=== PATIENT | female | born 2000 | race Caucasian/White ===

== ENCOUNTER 2023-11-21 19:38 | Emergency (ER) | payer OTHER, SELFPAY ==
[2023-11-21 19:40] VITALS: BP 112/74
[2023-11-21 19:59] LABS: % Basophils 0.7 % (0-2); % Eosinophils 2.1 % (0-6); % Immature Granulocytes 0.3 % (0-0.5); % Lymphocytes 45.5 % (20.5-51.1); % Monocytes 5.8 % (1.7-9.3); % Neutrophils 45.6 % (42.2-75.2); Absolute Basophils 0.1 10^3/uL (0-0.2); Absolute Eosinophils 0.2 10^3/uL (0-0.7); Absolute Lymphocytes 3.5 10^3/uL (1.2-3.4); Absolute Monocytes 0.4 10^3/uL (0.1-0.6); Absolute Neutrophils 3.5 10^3/uL (1.4-6.5); Hematocrit 40.6 % (37.0-47.0); Hemoglobin 14.5 g/dL (12.0-16.0); Mean Corp Hgb Conc. 35.7 g/dL (33.0-37.0); Mean Corpuscular Hgb 31.5 pg (27.0-31.0); Mean Corpuscular Volume 88.3 fL (81.0-99.0); Mean Platelet Volume 10.3 fL (7.4-10.4); Nucleated Red Blood Cells % 0 %; Platelet Count 220 10^3/uL (130-400); Red Cell Dist. Width 12.1 % (11.5-14.5); White Blood Cell Count 7.6 10^3/uL (4.8-10.8)
[2023-11-21 20:21] LABS: ALT (SGPT) 33 U/L (0-35); AST (SGOT) 32 U/L (14-36); Albumin 4.6 g/dl (3.5-5.0); Alkaline Phosphatase 47 U/L (38-126); Blood Urea Nitrogen 13 mg/dl (7-17); Calcium 9.8 mg/dl (8.4-10.2); Carbon Dioxide 26 mmol/L (22-30); Chloride 102 mmol/L (98-107); Glucose 85 mg/dl (70-99); Potassium 3.2 mmol/L (3.5-5.1); Sodium 142 mmol/L (135-145); Total Bilirubin 0.5 mg/dl (0.2-1.3); Total Protein 7.3 g/dl (6.3-8.2); eGFR > 60.00
[2023-11-21 20:22] LABS: Troponin I 0.023 ng/ml
[2023-11-21 20:23] LABS: HCG, Serum Qualitative Screen Negative
[2023-11-21 23:13] VITALS: BP 129/80
[2023-11-21 23:15] VITALS: BMI 31.6
[2023-11-22] VITALS: BP 108/62
--- NOTE | 2023-11-22 00:21 | ED.GENMED ---
History of Present Illness
General
Chief Complaint: Fainting/Passed Out
Source: patient and family
Exam Limitations: none
Time Seen by Provider: 11/21/23 23:20
History of Present Illness
History of Present Illness:
22-year-old female who presents after she had a syncopal episode. Patient states she was having dinner with her friend at a restaurant and had 1 benji. She then got up and felt dizzy and lightheaded like she was going to pass out. She states
she has passed out a few times in the past which attributed to a vasovagal event. The patient states that she did feel similar. She denies any associated abdominal pain. She did feel like her heart was pounding but is unsure if it really felt
fast. She had no chest pain. No shortness of breath. No recent travel. No leg swelling or leg cramping. Patient does state that she felt a little like she was going pass out again once medics got there. The patient states she did not really
want to come because now she feels totally normal. She states she is sort of embarrassed.
Past History
Past History
ED Past Medical History: None
Phy Exam
Physical Exam
Physical Exam:
CONSTITUTIONAL Patient alert and oriented to person, place and time. Well-appearing. Vital signs reviewed.
HEAD atraumatic, normocephalic.
EYES eyelids normal to inspection, Pupils equally round and reactive to light, Extraocular muscles intact, Conjunctiva normal, Sclera normal.
NECK normal range of motion, Trachea midline, no jugular venous distention.
RESPIRATORY CHEST No respiratory distress noted, Chest expansion equal, Bilateral breath sounds clear.
CARDIOVASCULAR regular rate and rhythm, Heart sounds normal.
ABDOMEN abdomen nontender, Bowel sounds normal. No distention.
BACK normal inspection, no obvious deformities
UPPER EXTREMITY range of motion normal, Motor strength normal, no cyanosis, no edema.
LOWER EXTREMITY range of motion normal, Motor strength normal, no cyanosis, no edema. Negative Homans. No swelling no palpable cords
NEURO Speech normal, No focal motor deficits, Laurie coma scale 15, Memory normal, Cranial Nerves intact to screening exam.
SKIN skin warm, dry, and normal in color.
PSYCHIATRIC patient oriented to person place and time, Normal affect.
Course
Orders/Labs/Results
Orders:
Orders
11/21/23 19:43
Electrocardiogram (*1) Urgent
Reason for Study: Chest Pain
Cardiac Monitoring- Treatment ONCE
EKG- Treatment ONCE
IV Insert/Care/Rem.- Treatment PRN
Test Result ONCE
O2 Therapy [RESP] Urgent
Titrate/Wean O2 to maintain O2 sat greater than (%): 90
Special Instructions: Maintain sats >/=90%
Pulse Ox/spot Check [RESP] Urgent
Quantity: 1
Special Instructions: ON ROOM AIR
11/21/23 19:53
Comprehensive Metabolic Panel Urgent
HCG, Serum Qualitative Screen Urgent
Comment: Notify provider if positive test present
Troponin I Urgent
11/21/23 19:54
Complete Blood Count/With Diff Urgent
Abnormal Lab Results
11/21/23 11/21/23
19:53 19:54
MCH 31.5 H pg
(27.0-31.0)
Absolute Lymphs (auto) 3.5 H 10^3/uL
(1.2-3.4)
Potassium 3.2 L mmol/L
(3.5-5.1)
11/21/23 19:54
11/21/23 19:53
Vital Signs
Initial and Last Documented VS:
Initial Vital Signs
Temp Pulse Resp BP Pulse Ox
98.5 F 80 19 112/74 100
11/21/23 19:40 11/21/23 19:40 11/21/23 19:40 11/21/23 19:40 11/21/23 19:40
Last Documented Vital Signs
Temp Pulse Resp BP Pulse Ox
98.5 F 72 20 108/62 98
11/21/23 19:40 11/22/23 00:15 11/22/23 00:15 11/22/23 00:00 11/22/23 00:15
MDM/Problems Addressed
MDM/Problems Addressed:
Syncope
*Pulse Oximetry
Patient hypoxic: no
*EKG
Interpreted by ED Provider?: Yes
Interpretation: normal
Rate: normal
Rhythm: sinus
Starr: normal axis
QRS Pattern: other (Incomplete right bundle branch block)
Ischemia: no ischemia
*Electrical Transmission Engineer Interpretation
Rate: normal
Interpretation: normal
Rhythm: sinus
*Critical Care Note
Total Time (30-74mins, 75-104mins- exclusive of procedures): Not Applicable
Data Reviewed
Source: patient and family
Further Testing Considered But Not Given:
Consider CTA but no PE risks. No signs of DVT
Patient Management
Escalation/DeEscalation of care consider admission/obs:
Patient appears well. Normal sinus rhythm telemetry monitoring. Wants to go home. No clinical concern for PE or other obstructive vascular problem. Low concern for arrhythmia at this time. Has history of vasovagal events. Did recommend close
follow-up with PCP
ED Attending Note
-
Portions of this chart may have been created with voice recognition software.� Occasional wrong word or��sound alike� substitutions may have occurred due to the inherent limitations of voice recognition software.
Discharge Plan
Departure
Patient Disposition: Home (Routine Discharge)
Date of Disposition: 11/22/23
Time of Disposition: 00:21
Patient with high blood pressure during this ER visit?: No
Discharge Problem:
Syncope
Instructions: Syncope (Fainting) (DC)
Referrals:
Chantal Walters MD [Family Provider] -
Activity Restrictions/Additional Instructions:
Please drink plenty fluids. Please see your doctor in the next 3 to 5 days for follow-up and reevaluation. Return immediate for worsening symptoms,, palpitations, shortness of breath or any other concerns.
Interventions
Interventions:
*Risk Screen - Suicide Last Done: 11/21/23 19:40
*General Assessment Last Done: 11/21/23 19:40
*Neglect/Abuse Screening Last Done: 11/21/23 19:40
*ED COVID-19 Vaccine History Last Done: 11/21/23 19:40
ED- Cardiac Assessment Last Done: 11/21/23 23:16
ED- Neurological Assessment Last Done: 11/21/23 23:17
Discharge Date and Time
Print Language: JAPANESE
[2023-11-22 00:47] VITALS: BP 108/62
== END 2023-11-22 00:48 | disposition home or self-care (01) ==
LOC: EMR 19:38
PROVIDERS: Student in an Organized Health Care Education/Training Program; EMERGENCY PHYSICIAN Emergency Medicine; FAMILY PHYSICIAN Family Medicine
DX: R55 Syncope and collapse (principal)
CPT/HCPCS: 99284; 80053; 84484; 84703; 85025; 93005